=== PATIENT | male | born 2000 | race Caucasian/White ===

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

== ENCOUNTER 2019-11-16 22:10 | Emergency (ER) | payer OTHER ==
[~2019-11-16] VITALS: Ht 177.8 cm; Wt 72.6 kg
--- NOTE | 2019-11-16 22:12 | NUR ---
PT AMBULATED TO ER BED 6 W/ STEADY GAIT.
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
[2019-11-16 22:21] VITALS: BP 125/82
--- NOTE | 2019-11-16 22:30 | NUR ---
XRAY AT BEDSIDE .
--- NOTE | 2019-11-16 22:45 | NUR ---
ERMD AT BEDSIDE FOR MEDICAL EVALUATION.
[2019-11-16] MEDS ORDERED: LORazepam 1 MG TAB PO ONE (22:50)
--- NOTE | 2019-11-16 22:54 | NUR ---
URINE SAMPLE COLLECTED AND HANDED TO LAB.
--- NOTE | 2019-11-16 22:56 | NUR ---
LAB AT BEDSIDE.
[2019-11-16 23:09] LABS: BASOPHILS % (AUTO) 0.3 % (0.0-2.0); EOSINOPHILS # (AUTO) 0.1 K/uL (0-0.4); HEMATOCRIT 44.6 % (36-52); HEMOGLOBIN 15.7 g/dL (12.0-18.0); LYMPHOCYTES # (AUTO) 2.4 K/uL (2.0-11.5); LYMPHOCYTES % (AUTO) 37.3 % (20.5-51.1); MEAN CORPUSCULAR HEMOGLOBIN 32 pg (27-31); MEAN CORPUSCULAR HGB CONC 35 g/dL (33-37); MEAN CORPUSCULAR VOLUME 90.2 fL (80-94); MONOCYTES # (AUTO) 0.4 K/uL (0.8-1.0); MONOCYTES % (AUTO) 5.9 % (1.7-9.3); NEUTROPHILS # (AUTO) 3.6 K/uL (1.8-7.7); NEUTROPHILS % (AUTO) 55.5 % (42.2-75.2); PLATELET COUNT (AUTO) 176 K/uL (140-450); RED BLOOD CELL COUNT(AUTO) 4.94 MIL/uL (4.20-6.10); RED CELL DISTRIBUTION WIDTH 12.6 % (11.6-13.7); WHITE BLOOD COUNT (AUTO) 6.5 K/uL (4.5-11.0)
[2019-11-16 23:17] LABS: ANION GAP 17.5 (8-16); CREATININE 0.8 mg/dL (0.6-1.3); POTASSIUM 3.5 mmol/L (3.5-5.1)
--- NOTE | 2019-11-16 23:24 | NUR ---
JESSICA PACKER AT BEDSIDE FOR MEDICAL RE EVALUATION.
[2019-11-16 23:25] LABS: BARBITURATE, URINE NEGATIVE ng/ml (NEG <=200); BENZODIAZEPINE, URINE POSITIVE ng/mL (NEG <=200); CANNABINOID, URINE NEGATIVE ng/mL (NEG <=50); COCAINE, URINE NEGATIVE ng/mL (NEG <=300); OPIATE, URINE NEGATIVE ng/mL (NEG <=2000); PHENCYCLIDINE SCREEN,URINE NEGATIVE ng/mL (NEG <=25)
[2019-11-16 23:32] LABS: FREE T4 (FREE THYROXINE) 1.08 ng/dL (0.76-1.46); THYROID STIMULATING HORMONE 2.51 uIU/mL (0.34-3.74)
--- NOTE | 2019-11-16 23:51 | NUR ---
PT STATES PAIN IS A LOT BETTER AT THIS TIME, RATES PAIN 4/10 . PT STATES ATIVAN HELPED FEELS A LOT LESS ANXIOUS BUT STILL A LITTLE JITTERY.
--- NOTE | 2019-11-17 00:09 | NUR ---
JESSICA PACKER AT BEDSIDE FOR MEDICAL RE EVALUATION.
[2019-11-17 01:22] VITALS: BP 111/66
== END 2019-11-17 01:22 | disposition home or self-care (01) ==
LOC: MED 22:10
DX: F41.9 Anxiety disorder, unspecified (principal); R07.9 Chest pain, unspecified
CPT/HCPCS: 36415; 71045; 80048; 80305; 84439; 84443; 84484; 85025; 93005; 99285; Q0092; 99281

== ENCOUNTER 2019-12-21 06:50 | Emergency (ER) | payer OTHER ==
[~2019-12-21] VITALS: Ht 170.2 cm; Wt 77.1 kg
[2019-12-21 06:50] VITALS: BP 119/76
--- NOTE | 2019-12-21 06:50 | NUR ---
PT AMBUALTED TO BED 7 WITH STEADY GAIT.
--- NOTE | 2019-12-21 07:04 | NUR ---
EKG BEING PERFORMED AT BEDSIDE.
--- NOTE | 2019-12-21 07:09 | NUR ---
ERMD AT BEDSIDE EVALUATING PT.
--- NOTE | 2019-12-21 07:09 | NUR ---
19 y/o A&OX4 male c/o chest pain 8/10 sharp like intermittent X1day. Pt states he kaiser had this pain [id number] but has gotten worse since last night. VSS, will continue to monitor. PMH: Anxiety NKA, no RX
[2019-12-21 07:26] VITALS: BP 119/76
--- NOTE | 2019-12-21 07:26 | NUR ---
Patient discharged with v/s stable. Written and verbal after care instructions given and explained. Patient alert, oriented and verbalized understanding of instructions. Ambulatory with steady gait. All questions addressed prior to discharge. ID band removed. Patient advised to follow up with PMD. Rx of Ativan 1mg PO TID PO PRN given. Patient educated on indication of medication including possible reaction and side effects. Opportunity to ask questions provided and answered.
== END 2019-12-21 07:26 | disposition home or self-care (01) ==
LOC: MED 06:50
DX: F41.9 Anxiety disorder, unspecified (principal); R07.89 Other chest pain
CPT/HCPCS: 93005; 99283

== ENCOUNTER 2021-01-06 00:55 | Emergency (ER) | payer OTHER ==
[~2021-01-06] VITALS: Ht 172.7 cm; Wt 82.6 kg
[2021-01-06 01:05] VITALS: BP 130/74
--- NOTE | 2021-01-06 01:05 | NUR ---
TO BED AMBULATORY
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
--- NOTE | 2021-01-06 01:40 | NUR ---
LAB AT BEDSIDE
[2021-01-06 01:49] LABS: BASOPHILS % (AUTO) 0.5 % (0.0-2.0); EOSINOPHILS # (AUTO) 0.1 K/uL (0-0.4); EOSINOPHILS % (AUTO) 1.4 % (0.0-4.0); HEMATOCRIT 42.3 % (36-52); HEMOGLOBIN 14.8 g/dL (12.0-18.0); LYMPHOCYTES # (AUTO) 1.7 K/uL (2.0-11.5); LYMPHOCYTES % (AUTO) 31.9 % (20.5-51.1); MEAN CORPUSCULAR HEMOGLOBIN 31 pg (27-31); MEAN CORPUSCULAR HGB CONC 35 g/dL (33-37); MEAN CORPUSCULAR VOLUME 88.9 fL (80-94); MONOCYTES # (AUTO) 0.4 K/uL (0.8-1.0); MONOCYTES % (AUTO) 6.9 % (1.7-9.3); NEUTROPHILS # (AUTO) 3.2 K/uL (1.8-7.7); NEUTROPHILS % (AUTO) 59.3 % (42.2-75.2); PLATELET COUNT (AUTO) 198 K/uL (140-450); RED BLOOD CELL COUNT(AUTO) 4.75 MIL/uL (4.20-6.10); RED CELL DISTRIBUTION WIDTH 12.1 % (11.6-13.7); WHITE BLOOD COUNT (AUTO) 5.4 K/uL (4.8-10.8)
[2021-01-06 01:59] LABS: ANION GAP 13.1 (8-16); CARBON DIOXIDE 27.8 mmol/L (21-32); POTASSIUM 3.9 mmol/L (3.5-5.1)
[2021-01-06] MEDS ORDERED: MECL-370 PO (02:18)
[2021-01-06 02:52] VITALS: BP 130/74
== END 2021-01-06 02:52 | disposition home or self-care (01) ==
LOC: MED 00:55
DX: R42 Dizziness and giddiness (principal)
CPT/HCPCS: 36415; 80048; 85025; 93005; 99284